=== PATIENT | female | born 1965 | race Caucasian/White ===

== ENCOUNTER 2017-02-04 20:31 | Emergency (ER) | payer OTHER ==
[~2017-02-04] VITALS: Ht 162.6 cm; Wt 70.1 kg
[~2017-02-04 20:31] MED LIST: ADDERALL30 MG PO; CIPRO500 MG PO; FLOMAX0.4 MG PO; PERCOCET 5/31 TABLET PO
[2017-02-04 21:08] LABS: HEMATOCRIT 48.7 % (36.0-46.0); MCH 30.8 PG (29.0-34.0); MCHC 33.9 G/DL (30.0-36.0); MEAN PLAT.VOLUME 9.7 uM^3 (9.5-12.4); PLATELET COUNT 316 K/uL (156-360); RBC DIS.WIDTH-CV 11.9 % (11.8-14.6); RBC DIS.WIDTH-SD 39.9 % (39-53); RED BLOOD COUNT 5.35 M/uL (3.80-5.20); WHITE BLOOD COUNT 12.3 K/uL (4.1-10.2)
[2017-02-04 21:17] LABS: CHLORIDE 103 mEq/L (99-109); POTASSIUM 3.7 mEq/L (3.7-5.4)
[2017-02-04 21:18] LABS: SODIUM 141 mEq/L (136-147)
[2017-02-04 21:20] LABS: GLUCOSE 211 mg/dL (70-99)
[2017-02-04 21:21] LABS: ANION GAP 11 MEQ/L (2-14)
[2017-02-04 21:22] LABS: TOTAL BILIRUBIN 0.3 mg/dL (0.0-1.0)
[2017-02-04 21:23] LABS: ALKALINE PHOSPHATASE 102 IU/L (3-129); GFR ESTIMATE (CALCULATED) > 59 mL/min/
[2017-02-04 21:25] LABS: UREA NITROGEN (BUN) 17 mg/dL (9-23)
[2017-02-04 21:26] LABS: ERTH.SED.RATE 15 MM/HR (0-30)
[2017-02-04] MEDS ORDERED: NAPROSYN500 MG PO (21:58)
[2017-02-04 21:59] LABS: C-REACTIVE PROTEIN 2.3 MG/L (0-10)
[2017-02-04 22:05] VITALS: BP 129/81
[2017-02-05 09:56] LABS: LYME DISEASE SEROLOGY SCREEN NEGATIVE (NEGATIVE)
== END 2017-02-04 22:06 | disposition home or self-care (01) ==
LOC: RME 20:31 → EME 20:31 → RME 22:06
PROVIDERS: Physician Assistant
DX: M25.561 Pain in right knee (principal); M25.50 Pain in unspecified joint; R73.9 Hyperglycemia, unspecified; F17.200 Nicotine dependence, unspecified, uncomplicated
CPT/HCPCS: 73564; 80053; 85027; 85651; 86140; 86618; 99281; 99284; J1885